=== PATIENT | male | born 1960 | race Caucasian/White ===

== ENCOUNTER 2017-04-26 10:39 | Emergency (ER) | payer MEDICARE ==
[~2017-04-26] VITALS: Ht 177.8 cm; Wt 70.9 kg
[~2017-04-26 10:39] MED LIST: ALBUTEROL; COLACE 100100 MG/CAP PO; DESYREL 50MG50 MG PO; IPRATROPIUM BROM3 M1 IH; LAMICTAL; LEVAQUIN 750MG750 M1 PO; LITHIUM CARBON300 MG PO; NORCO 325 MG-51 TAB PO; PREDNISONE20 MG PO; PULMICORT0.5 MG/2 M IH; RT ALBUTER2.5 MG/0.5 IH; SINGULAIR; [UNRECOGNIZED DRUG - REMARK]; [UNRECOGNIZED DRUG - REMARK]
[2017-04-26 10:42] VITALS: TEMP 99.5
[2017-04-26] MEDS ORDERED: NORCO 325 MG-7.1 TAB PO (10:49)
[2017-04-26 11:46] LABS: BASO # 0.1 (0.0-0.2); BASO % 0.7 % (0.0-2.0); EOS # 0.3 (0.0-0.7); EOS % 4.3 % (0-4.0); GRAN # 5.2 (1.4-6.5); GRAN % 69.8 % (42.2-75.2); HEMATOCRIT 43.9 % (42.0-52.0); HEMOGLOBIN 15.1 g/dl (13.5-18.0); MEAN CELL VOLUME 89 fl (80.0-100.0); MEAN CORPUSCULAR HEMOGLOBIN 31 pg (27.0-31.0); MEAN CORPUSCULAR HGB CONC 34 g/dl (33.0-37.0); MEAN PLATELET VOLUME 9.3 fl (7.4-10.4); MONO # 0.9 (0.1-0.6); MONO % 11.9 % (1.7-9.3); PLATELET COUNT 242 K/mm3 (130-400); RED BLOOD COUNT 4.91 M/mm3 (4.20-5.60); REDCELL DISTRIBUTION WIDTH-CV 13.4 % (11.5-14.5); WHITE BLOOD COUNT 7.5 K/mm3 (4.8-10.8)
[2017-04-26 11:51] LABS: ADJUSTED CALCIUM 8.6 mg/dL (8.4-10.2); ALBUMIN 4.2 gm/dL (3.5-5.0); BILIRUBIN,TOTAL 0.5 mg/dL (0.0-1.0); CALCIUM 8.8 mg/dL (8.4-10.2); CREATININE, serum 0.73 mg/dL (0.66-1.25); POTASSIUM 3.9 mmol/L (3.4-5.0); TOTAL PROTEIN 6.9 gm/dL (6.4-8.2)
[2017-04-26] MEDS ORDERED: ZITHROMAX Z PA250 MG PO (12:10)
[2017-04-26] MEDS ORDERED: PREDNISONE20 MG PO (12:10)
[2017-04-26 13:14] VITALS: BP 125/89; PULSE 100
== END 2017-04-26 13:18 | disposition home or self-care (01) ==
LOC: COL.ER 10:39
PROVIDERS: Family Medicine
DX: J44.9 Chronic obstructive pulmonary disease, unspecified (principal); M06.9 Rheumatoid arthritis, unspecified; F17.210 Nicotine dependence, cigarettes, uncomplicated
CPT/HCPCS: J2930

== ENCOUNTER 2017-09-23 12:16 | Emergency (ER) | payer MEDICARE ==
[~2017-09-23] VITALS: Ht 177.8 cm; Wt 73.7 kg
[~2017-09-23 12:16] MED LIST changes: +NORCO 325 MG-7.1 TAB PO; +ZITHROMAX Z PA250 MG PO
[2017-09-23 12:26] VITALS: BP 106/68; TEMP 100.1
[2017-09-23 12:59] LABS: INFLUENZA A NEGATIVE; INFLUENZA B NEGATIVE
[2017-09-23] MEDS ORDERED: PREDNISONE20 MG PO (13:39)
[2017-09-23] MEDS ORDERED: TAMIFLU 75MG75 MG PO (13:39)
[2017-09-23 14:02] VITALS: PULSE 99
== END 2017-09-23 14:03 | disposition home or self-care (01) ==
LOC: COL.ER 12:16
PROVIDERS: Nurse Practitioner
DX: J11.1 Influenza due to unidentified influenza virus with other respiratory manifestations (principal); J44.9 Chronic obstructive pulmonary disease, unspecified; F17.210 Nicotine dependence, cigarettes, uncomplicated
CPT/HCPCS: J7512

== ENCOUNTER 2019-09-12 16:34 | Emergency (ER) | payer MEDICARE ==
[~2019-09-12] VITALS: Ht 177.8 cm; Wt 73.6 kg
[~2019-09-12 16:34] MED LIST changes: +TAMIFLU 75MG75 MG PO
[2019-09-12 17:05] LABS: BASO % 0.3 % (0.0-2.0); GRAN # 7.7 (1.4-6.5); GRAN % 86.4 % (42.2-75.2); HEMATOCRIT 45.7 % (42.0-52.0); HEMOGLOBIN 15.4 g/dl (13.5-18.0); LYMPH # 0.3 (1.2-3.4); LYMPH % 3.8 % (20.0-51.0); MEAN CELL VOLUME 92 fl (80.0-100.0); MEAN CORPUSCULAR HEMOGLOBIN 31 pg (27.0-31.0); MEAN CORPUSCULAR HGB CONC 34 g/dl (33.0-37.0); MEAN PLATELET VOLUME 9.3 fl (7.4-10.4); MONO # 0.8 (0.1-0.6); MONO % 9.2 % (1.7-9.3); PLATELET COUNT 241 K/mm3 (130-400); RED BLOOD COUNT 4.96 M/mm3 (4.20-5.60)
[2019-09-12 17:21] LABS: ALANINE AMINOTRANSFERASE 26 U/L (21-72); ALBUMIN 4.5 gm/dL (3.5-5.0); ALKALINE PHOSPHATASE 72 U/L (50-136); ANION GAP 12 mmol/L (7-16); AST,SGOT 20 U/L (15-37); BILIRUBIN,TOTAL 0.5 mg/dL (0.0-1.0); BLOOD UREA NITROGEN 9 mg/dL (9-20); CALCIUM 8.7 mg/dL (8.4-10.2); CARBON DIOXIDE 24 mmol/L (22-30); CHLORIDE 101 mmol/L (98-107); CREATININE, serum 0.86 (0.66-1.25); GLUCOSE 111 mg/dL (74-106); POTASSIUM 3.9 mmol/L (3.4-5.0); SODIUM 136 mmol/L (137-145); TOTAL PROTEIN 7.2 gm/dL (6.4-8.2)
[2019-09-12 17:31] LABS: TROPONIN-I < 0.012 ng/mL (0.000-0.035)
[2019-09-12] MEDS ORDERED: TAMIFLU 75MG75 MG PO (20:04)
[2019-09-12] MEDS ORDERED: PREDNISONE20 MG PO (20:04)
[2019-09-12] MEDS ORDERED: TESSALON P100 MG/CAP PO (20:18)
[2019-09-12 20:29] VITALS: BP 100/72; PULSE 99; TEMP 98.9
== END 2019-09-12 20:29 | disposition home or self-care (01) ==
LOC: COL.ER 16:34
PROVIDERS: Emergency Medicine
DX: J44.1 Chronic obstructive pulmonary disease with (acute) exacerbation (principal); J11.1 Influenza due to unidentified influenza virus with other respiratory manifestations; F31.9 Bipolar disorder, unspecified; Z87.01 Personal history of pneumonia (recurrent)
CPT/HCPCS: J1885; J7030; J7512

== ENCOUNTER 2021-02-17 18:11 | Emergency (ER) | payer MEDICARE ==
[~2021-02-17] VITALS: Ht 177.8 cm; Wt 70.5 kg
[~2021-02-17 18:11] MED LIST changes: +TESSALON P100 MG/CAP PO
[2021-02-17] MEDS ORDERED: FLEXERIL 1010 MG/TAB PO (20:03)
[2021-02-17 20:26] VITALS: BP 111/79; PULSE 91; TEMP 98.3
== END 2021-02-17 20:26 | disposition home or self-care (01) ==
LOC: COL.ER 18:11
DX: S39.012A Strain of muscle, fascia and tendon of lower back, initial encounter (principal); J44.9 Chronic obstructive pulmonary disease, unspecified; Z88.1 Allergy status to other antibiotic agents; Z79.51 Long term (current) use of inhaled steroids; Z79.52 Long term (current) use of systemic steroids; W01.10XA Fall on same level from slipping, tripping and stumbling with subsequent striking against unspecified object, initial encounter
CPT/HCPCS: J1885

== ENCOUNTER 2022-04-03 12:06 | Emergency (ER) | payer MEDICARE ==
[~2022-04-03] VITALS: Ht 177.8 cm; Wt 72.7 kg
[~2022-04-03 12:06] MED LIST changes: +FLEXERIL 1010 MG/TAB PO
[2022-04-03 12:49] VITALS: TEMP 97.3
[2022-04-03 14:15] VITALS: BP 112/83; PULSE 75
== END 2022-04-03 14:16 | disposition home or self-care (01) ==
LOC: COL.ER 12:06
DX: U07.1 COVID-19 (principal); F17.210 Nicotine dependence, cigarettes, uncomplicated; Z28.310 Unvaccinated for COVID-19